=== PATIENT | male | born 1985 | race Caucasian/White ===

== ENCOUNTER 2018-03-29 02:21 | Emergency (ER) | payer BC ==
[~2018-03-29] VITALS: Ht 177.8 cm; Wt 81.6 kg
[2018-03-29 02:28] VITALS: BP 114/81
== END 2018-03-29 03:24 | disposition home or self-care (01) ==
LOC: ER 02:21
DX: R07.9 Chest pain, unspecified (principal); G62.9 Polyneuropathy, unspecified; H90.3 Sensorineural hearing loss, bilateral; M79.602 Pain in left arm
CPT/HCPCS: 71045; 93005; 99284